=== PATIENT | male | born 1950 | race Caucasian/White ===

== ENCOUNTER 2021-08-07 17:05 | Emergency (ER) | payer MEDICARE ==
[~2021-08-07] VITALS: Ht 182.9 cm; Wt 86.6 kg
[2021-08-07] MEDS ORDERED: LEVOFLOXACIN 500 MG TAB PO ONE (20:15)
[2021-08-07] MEDS ORDERED: LEVOFLOXACIN 500 MG TAB ONE (20:16)
[2021-08-07] MEDS ORDERED: LEVOFLOXACIN750 MG PO (20:19)
[2021-08-07] MEDS ORDERED: DEXAMETHASONE6 MG PO (20:20)
[2021-08-07 20:33] VITALS: BP 157/97
== END 2021-08-07 20:33 | disposition home or self-care (01) ==
LOC: FSED 18:10
DX: R04.2 Hemoptysis (principal); J18.9 Pneumonia, unspecified organism; J44.9 Chronic obstructive pulmonary disease, unspecified; R05.9 Cough, unspecified; I12.9 Hypertensive chronic kidney disease with stage 1 through stage 4 chronic kidney disease, or unspecified chronic kidney disease; E11.22 Type 2 diabetes mellitus with diabetic chronic kidney disease; N18.9 Chronic kidney disease, unspecified; Z85.118 Personal history of other malignant neoplasm of bronchus and lung; Z20.822 Contact with and (suspected) exposure to COVID-19
CPT/HCPCS: 71250; 99284; U0002

== ENCOUNTER 2021-09-17 15:52 | Inpatient (IN) | payer MEDICARE ==
[~2021-09-17] VITALS: Ht 182.9 cm; Wt 84.4 kg
[~2021-09-17 15:52] MED LIST: DEXAMETHASONE6 MG PO; LEVOFLOXACIN750 MG PO
[2021-09-17] MEDS ORDERED: CEFTRIAXONE 1 GM VIAL IV ONE (16:15)
[2021-09-17] MEDS ORDERED: IBUPROFEN 600 MG TAB PO STA (16:15)
[2021-09-17] MEDS ORDERED: SODIUM CHLORIDE 0.9% 1000ML 1,000 ML IV STA ×2 (16:15→16:20)
[2021-09-17] MEDS ORDERED: ONDANSETRON HCL INJ 2MG/ML 2ML 2 MG/ML VIAL IV STA (16:15)
[2021-09-17] MEDS ORDERED: ONDANSETRON HCL INJ 2MG/ML 2ML 2 MG/ML VIAL ONE (16:29)
[2021-09-17] MEDS ORDERED: SODIUM CHLORIDE 0.9% 1000ML 2,000 ML ONE (16:51)
[2021-09-17] MEDS ORDERED: IBUPROFEN 600 MG TAB ONE (16:51)
[2021-09-17] MEDS ORDERED: CEFTRIAXONE 1 GM VIAL ONE (16:51)
[2021-09-17] MEDS ORDERED: CEFTRIAXONE 1 GM in SODIUM CHLORIDE 0.9% 50ML 50 ML IV ONE (17:00)
[2021-09-17] MEDS ORDERED: SODIUM CHLORIDE 0.9% 1000ML 1,000 ML IV SCH (18:00)
[2021-09-17] MEDS ORDERED: SODIUM CHLORIDE FLUSH 10 ML SYR INJ PRN (18:00)
[2021-09-17] MEDS ORDERED: ONDANSETRON HCL INJ 2MG/ML 2ML 2 MG/ML VIAL IV PRN (18:00)
[2021-09-17] MEDS ORDERED: ALBUTEROL SULF 0.083% NEB SOLN 3 ML NEB NEB PRN (18:00)
[2021-09-17] MEDS ORDERED: SODIUM CHLORIDE 0.9% 500ML 500 ML IV ONE (18:00)
[2021-09-17] MEDS ORDERED: IPRATROPIUM BROMIDE 0.02% 2.5 ML NEB NEB PRN (18:15)
[2021-09-17] MEDS ORDERED: ALBUTEROL/IPRATROPIUM 3 ML NEB ONE (18:22)
[2021-09-17] MEDS ORDERED: SODIUM CHLORIDE 0.9% 500ML 500 ML ONE (18:22)
[2021-09-17] MEDS ORDERED: ACETAMINOPHEN 325 MG TAB PO ONE (18:45)
[2021-09-17] MEDS ORDERED: ACETAMINOPHEN 325 MG TAB ONE (19:00)
[2021-09-17 20:00] VITALS: BP 128/83
[2021-09-17] MEDS ORDERED: Vancomycin IV 1 GM in SODIUM CHLORIDE 0.9% 250ML 250 ML IV ONE (20:30)
[2021-09-17] MEDS ORDERED: LISINOPRIL10 MG PO (20:55)
[2021-09-17] MEDS ORDERED: ATROVENT HFA12.9 GM INH (20:55)
[2021-09-17] MEDS ORDERED: BACLOFEN10 MG PO (20:55)
[2021-09-17] MEDS ORDERED: GLIPIZIDE10 MG PO (20:55)
[2021-09-17] MEDS ORDERED: ADVAIR HFA 115-12 GM INH (20:55)
[2021-09-17] MEDS ORDERED: DOCUSATE SODIU100 MG PO (20:56)
[2021-09-17] MEDS ORDERED: ASPIRIN81 MG PO (20:56)
[2021-09-17] MEDS: PREDNISONE 20 MG TAB PO SCH (21:18)
[2021-09-17] MEDS: ENOXAPARIN 30 MG/0.3 ML SYR SC SCH (21:18)
[2021-09-17] MEDS: AZITHROMYCIN 250 MG TAB PO SCH (21:18)
[2021-09-17] MEDS: CEFEPIME 1 GM in SODIUM CHLORIDE 0.9% 50ML 50 ML IV SCH (23:05)
[2021-09-18] VITALS (8 sets, daily range): BP systolic 107–133; BP diastolic 64–92
[2021-09-18] MEDS ORDERED: OSELTAMIVIR PHOSPHATE 75 MG CAP PO SCH (01:00)
[2021-09-18] MEDS: OSELTAMIVIR PHOSPHATE 30 MG CAPSULE PO SCH ×3 (01:53→16:37)
[2021-09-18] MEDS ORDERED: CEFTRIAXONE 1 GM in SODIUM CHLORIDE 0.9% 50ML 50 ML IV SCH (05:00)
[2021-09-18] MEDS: CEFEPIME 1 GM in SODIUM CHLORIDE 0.9% 50ML 50 ML IV SCH ×2 (05:51→21:48)
[2021-09-18 07:29] LABS: BASOPHILS % 0.2 % (0.0-1.0); HEMATOCRIT 38.3 % (38.2-49.6); HEMOGLOBIN 12.5 g/dL (14.0-18.0); LYMPHOCYTES # (AUTO) 0.6 (1.0-3.2); LYMPHOCYTES % 3.1 % (18.0-39.1); MEAN CORPUSCULAR HEMOGLOBIN 31.7 pg (28-32); MEAN CORPUSCULAR HGB CONC 32.6 g/dL (31-35); MEAN CORPUSCULAR VOLUME 97.2 fL (81-99); MONOCYTES # (AUTO) 0.6 (0.2-0.8); NEUTROPHILS # (AUTO) 18.3 (2.1-6.9); NEUTROPHILS % 93.3 % (38.7-80.0); PLATELET COUNT 197 x10e3/uL (140-360); RED BLOOD COUNT 3.94 x10e6/uL (4.3-5.7); RED CELL DISTRIBUTION WIDTH 13.2 % (11.7-14.4)
[2021-09-18 07:51] LABS: ANION GAP 9.1 mmol/L (8-16); CALCIUM 9.1 mg/dL (8.4-10.2); CREATININE, SERUM 1.61 mg/dL (0.72-1.25); POTASSIUM 5.1 mmol/L (3.5-5.1)
[2021-09-18] MEDS ORDERED: DEXTROSE 50% SYRINGE 50 ML IV PRN (10:30)
[2021-09-18] MEDS: INSULIN GLARGINE 100 UNITS/ML VIAL SQ SCH (13:51)
[2021-09-18] MEDS: INSULIN REGULAR, HUMAN 100 UNIT/1 ML SQ SCH ×3 (13:52→22:04)
[2021-09-18] MEDS: PREDNISONE 20 MG TAB PO SCH (21:48)
[2021-09-18] MEDS: AZITHROMYCIN 250 MG TAB PO SCH (21:48)
[2021-09-18] MEDS: ENOXAPARIN 30 MG/0.3 ML SYR SC SCH (21:48)
[2021-09-19] VITALS: BP 112/77
[2021-09-19 04:00] VITALS: BP 108/70
[2021-09-19 04:47] LABS: BASOPHILS % 0.3 % (0.0-1.0); EOSINOPHILS % 0.1 % (0.0-6.0); HEMATOCRIT 37.5 % (38.2-49.6); HEMOGLOBIN 12.2 g/dL (14.0-18.0); LYMPHOCYTES # (AUTO) 0.6 (1.0-3.2); LYMPHOCYTES % 3.8 % (18.0-39.1); MEAN CORPUSCULAR HEMOGLOBIN 31.9 pg (28-32); MEAN CORPUSCULAR HGB CONC 32.5 g/dL (31-35); MEAN CORPUSCULAR VOLUME 97.9 fL (81-99); MONOCYTES # (AUTO) 0.3 (0.2-0.8); MONOCYTES % 2.1 % (4.4-11.3); NEUTROPHILS # (AUTO) 14.8 (2.1-6.9); NEUTROPHILS % 92.8 % (38.7-80.0); PLATELET COUNT 190 x10e3/uL (140-360); RED BLOOD COUNT 3.83 x10e6/uL (4.3-5.7); RED CELL DISTRIBUTION WIDTH 13.2 % (11.7-14.4)
[2021-09-19 05:11] LABS: ANION GAP 11.1 mmol/L (8-16); CALCIUM 9.9 mg/dL (8.4-10.2); CREATININE, SERUM 1.4 mg/dL (0.72-1.25); POTASSIUM 5.1 mmol/L (3.5-5.1)
[2021-09-19] MEDS: INSULIN REGULAR, HUMAN 100 UNIT/1 ML SQ SCH ×2 (07:30→11:30)
[2021-09-19 08:00] VITALS: BP 121/77
[2021-09-19 08:10] VITALS: BP 121/77
[2021-09-19] MEDS: CEFEPIME 1 GM in SODIUM CHLORIDE 0.9% 50ML 50 ML IV SCH (08:40)
[2021-09-19] MEDS: INSULIN GLARGINE 100 UNITS/ML VIAL SQ SCH (08:40)
[2021-09-19] MEDS: OSELTAMIVIR PHOSPHATE 30 MG CAPSULE PO SCH (08:40)
[2021-09-19 11:58] VITALS: BP 123/75
[2021-09-19] MEDS ORDERED: VIBRAMYCIN100 MG PO (12:07)
[2021-09-19] MEDS ORDERED: TAMIFLU30 MG PO (12:07)
[2021-09-19] MEDS ORDERED: MEDROL4 M2 PO (12:10)
[2021-09-19] MEDS ORDERED: ONDANSETRON HCL 4 MG ORAL DISINTEGRATING TAB PO PRN (13:00)
== END 2021-09-19 14:10 | disposition home or self-care (01) | DRG 871 ==
LOC: FSED 16:14 → ERHOLD 18:00 → MED/SURG2 19:46
PROVIDERS: ADMIT Internal Medicine; ATTEND Internal Medicine
DX: A41.89 Other specified sepsis (principal); J18.9 Pneumonia, unspecified organism; J10.00 Influenza due to other identified influenza virus with unspecified type of pneumonia; J44.0 Chronic obstructive pulmonary disease with (acute) lower respiratory infection; J44.1 Chronic obstructive pulmonary disease with (acute) exacerbation; E78.5 Hyperlipidemia, unspecified; Z85.118 Personal history of other malignant neoplasm of bronchus and lung; E11.22 Type 2 diabetes mellitus with diabetic chronic kidney disease; I12.9 Hypertensive chronic kidney disease with stage 1 through stage 4 chronic kidney disease, or unspecified chronic kidney disease; N18.30 Chronic kidney disease, stage 3 unspecified; Z87.891 Personal history of nicotine dependence; Z91.041 Radiographic dye allergy status; D50.0 Iron deficiency anemia secondary to blood loss (chronic); Z20.822 Contact with and (suspected) exposure to COVID-19
CPT/HCPCS: 36415; 71250; 74176; 80048; 80053; 81003; 82948; 83605; 85025; 87040; 87400; 94760; 94799; 96374; 99251; 99284; J0692; J0696; J1650; J1815; J1817; J2405; J3370; J7030; J7040; J7050; J7512; U0002